=== PATIENT | male | born 1945 | race Caucasian/White ===

== ENCOUNTER 2024-02-20 11:44 | Outpatient (CLI) | payer MEDICARE, SELFPAY ==
[2024-02-20 11:51] VITALS: BMI 27.2
--- NOTE | 2024-02-20 11:55 | PC.NURSE ---
1155-collected labs via venipuncture stick in left ac with butterfly needle; to call pt with results.
[2024-02-20 12:05] LABS: Basophils # 0.1 K/mm3 (0-0.2); Basophils % 1.1 % (0.1-2.0); Eosinophils # 0.4 K/mm3 (0.0-0.4); Hematocrit 44.6 % (42.0-52.0); Lymphocytes # 1.7 K/mm3 (0.7-4.5); Lymphocytes % 29.1 % (10-50); Mean Corpuscular HGB Conc 33.7 g/dL (31.8-35.4); Mean Corpuscular Hemoglobin 31.5 pg (27.0-31.2); Mean Corpuscular Volume 93.4 fl (80-94); Mean Platelet Volume 9.8 fl (7.4-10.4); Monocytes # 0.4 K/mm3 (0.1-1.0); Monocytes % 6.7 % (1.7-9.3); Neutrophils # 3.4 K/mm3 (1.8-7.8); Neutrophils % 57.1 % (37.0-80.0); Platelet Count 159 K/mm3 (142-424); Red Blood Count 4.78 M/mm3 (4.60-6.20)
[2024-02-20 12:31] LABS: Chloride 103 mmol/L (98-107); Potassium 3.7 mmoL/L (3.5-5.1); Sodium 138 mmol/L (136-145)
[2024-02-20 12:34] LABS: Alanine Aminotransferase 19 U/L (12-78); Albumin Level 4.3 g/dl (3.5-5.0); Albumin/Globulin Ratio 1.4 (1.1-1.8); Alkaline Phosphatase 66 U/L (38-126); Anion Gap 10.7 mEq/L (5-15); Aspartate Amino Transferase 28 U/L (17-59); Bilirubin,Total 2.1 mg/dl (0.2-1.3); Blood Urea Nitrogen 15 mg/dl (9-20); Calcium 8.8 mg/dl (8.4-10.2); Carbon Dioxide 28 mmol/L (22.0-30.0); Creatinine Clearance Estimated 71 mL/min (50-200); Estimated Glomerular Filt Rate 81 ml/min (>60); GFR (African American) 98 ML/MIN (>60); Glucose 108 mg/dl (74-100); Total Protein,Serum 7.3 g/dl (6.3-8.2)
[2024-02-20 13:07] LABS: Lactate Dehydrogenase 168 U/L (313-618)
== END 2024-02-20 12:00 | disposition home or self-care (01) ==
LOC: INF 11:47
PROVIDERS: Visit Provider Internal Medicine Medical Oncology
DX: C85.18 Unspecified B-cell lymphoma, lymph nodes of multiple sites (principal)
CPT/HCPCS: 36415; 80053; 83615; 85025

== ENCOUNTER 2024-08-20 11:07 | Outpatient (CLI) | payer MEDICARE, SELFPAY ==
[2024-08-20 11:46] LABS: Hematocrit 36.1 % (42.0-52.0); Hemoglobin 12.4 g/dL (14.1-18.0); Mean Corpuscular HGB Conc 34.3 g/dL (31.8-35.4); Mean Corpuscular Hemoglobin 29.3 pg (27.0-31.2); Mean Corpuscular Volume 85.3 fl (80-94); Mean Platelet Volume 10.9 fl (7.4-10.4); Platelet Count 142 K/mm3 (142-424); Red Blood Count 4.23 M/mm3 (4.60-6.20); Red Cell Distribution Width 12.9 % (11.5-17.5); White Blood Count 6.3 K/mm3 (4.8-10.8)
[2024-08-20 11:47] LABS: Basophils # 0.1 K/mm3 (0-0.2); Basophils % 0.8 % (0.1-2.0); Eosinophils # 0.3 K/mm3 (0.0-0.4); Eosinophils % 5.2 % (0.1-12.0); Lymphocytes # 1.7 K/mm3 (0.7-4.5); Lymphocytes % 27.3 % (10-50); Monocytes # 0.6 K/mm3 (0.1-1.0); Monocytes % 9.5 % (1.7-9.3); Neutrophils # 3.5 K/mm3 (1.8-7.8); Neutrophils % 56.4 % (37.0-80.0)
[2024-08-20 12:46] LABS: Albumin Level 4.1 g/dl (3.5-5.0); Chloride 109 mmol/L (98-107); Sodium 137 mmol/L (136-145)
[2024-08-20 12:49] LABS: Alanine Aminotransferase 23 U/L (12-78); Albumin/Globulin Ratio 1.9 (1.1-1.8); Alkaline Phosphatase 67 U/L (38-126); Aspartate Amino Transferase 27 U/L (17-59); Bilirubin,Total 1.5 mg/dl (0.2-1.3); Blood Urea Nitrogen 19 mg/dl (9-20); Carbon Dioxide 24 mmol/L (22.0-30.0); Estimated Glomerular Filt Rate 93 ml/min (>60); GFR (African American) 112 ML/MIN (>60); Globulin 2.2 g/dL (1.3-3.2); Total Protein,Serum 6.3 g/dl (6.3-8.2)
[2024-08-20 12:50] LABS: Calcium 8.6 mg/dl (8.4-10.2); Glucose 121 mg/dl (74-100)
[2024-08-20 13:00] LABS: Lactate Dehydrogenase 170 U/L (313-618)
== END 2024-08-20 23:59 | disposition home or self-care (01) ==
LOC: LAB 11:10
PROVIDERS: Visit Provider Internal Medicine Medical Oncology
DX: C85.10 Unspecified B-cell lymphoma, unspecified site (principal)
CPT/HCPCS: 36415; 80053; 83615; 85025

== ENCOUNTER 2025-03-17 10:17 | Outpatient (CLI) | payer MEDICARE, SELFPAY ==
--- OUTSIDE RECORDS SUMMARY | 2025-03-17 10:41 | XMS_ITS | Clinical Summary ---
Author Organization [employer] ([place], [place], [place], [place]) Address [address] [place] [address] Care Team Providers Care Marking Stitcher Name Role Phone Meghana Mathews APRN Primary Care Provider Allergies Active Allergy Reactions Criticality Noted Date Comments Diphenhydramine 08/09/2022 Meloxicam 08/09/2022 Medications omeprazole (PriLOSEC) 40 MG capsule Take 1 capsule (40 mg total) by mouth daily. Active pravastatin (PRAVACHOL) 10 MG tablet Take 1 tablet (10 mg total) by mouth. Active sertraline (ZOLOFT) 100 MG tablet sertraline 100 mg tablet TAKE 1 TABLET BY MOUTH EVERY DAY Active Social History Tobacco Use Types Packs/Day Years Used Date Smoking Tobacco: Former Cigarettes 3 28 1 5 - 1982 Tobacco Cessation:Counseling Given: Not Answered Alcohol Use Standard Drinks/Week Comments Yes 0 (1 standard drink = 0.6 oz pure alcohol) occasional 1-2 beer once a week Family and Community Support Answer Fernando e Recorded Help with Day to Day Activities Not on file 09/20/2023 Feeling Lonely or Isolated Not on file 09/20 Educational Attainment Answer Date Iván rded Speak language other than Macanese at home Not on file 09/20/2023 Want help with school or training Not on file 09/20/2023 Substance Use Answer Date Recorded Used prescription meds for non-medical reasons N ot on file 09/20/2023 Used illegal drugs past 12 months Not on file 09/20/2023 Sex and Gender Information Value Date Recorded Sex Assigned at Not on file Legal Sex Male 5:17 PM CDT Gender Identity Not on file Sexual Orientation Not on file Last Filed Vital Signs Vital Sign Reading Time Taken Comments Blood Pressure 155/78 10/23/2023 11:24 AM EST Pulse 77 10/23/2023 11:24 AM EST Temperature 36.5 C (97.7 F) 05/17/2023 9:17 AM EDT Respiratory Rate 16 05/17/2023 9:17 AM EDT Oxygen Saturation 96% 10/23/2023 11:24 AM EST Inhaled Oxygen Concentration - - Weight 87.7 kg (193 lb 6.4 oz) 10/23/2023 11:24 AM EST Height 177.8 cm (5' 10 ) 10/23/2023 11:24 AM EST Body Mass Index 27.75 10/23/2023 11:24 AM EST Plan of Treatment Health Maintenance Due Date Last Done Comments Depression Screening (12+) 1955 DTAP/TDAP/TD VACCINES (1 - Tdap) 1962 Shingles Vaccine (Zoster) (1 of 2) 1962 Respiratory Syncytial Virus (RSV) Adult or (1 - 1-dose 75+ series) 2018 Medicare Initial AWV [id number] 04/04/2023 COVID-19 VACCINE ( - 2023-2 5 season) 2024 04/25/2022, 06/06/2021, 10/16/2020, Additional history exists Falls Risk Screening 09/03/2024 Tobacco Cessation Counseling and Screening (12+) 10/23/2024 10/23/2023 Influenza Vaccine (#1) 2025 3, 05/19/2022, 06/28/2020, Additional history exists Pneumococcal 50+ years Completed 05/19/2022, 2016 Insurance [facility] MEDIC[facility] ADVANTAGE Care Teams Marking Stitcher Relationship Specialty Start Date End Date Meghana Mathews, DIRECTOR COMPLIANCE [address] [facility] [address] [place], [place] [phone] PCP - General Nurse Practitioner 05/17/23
--- OUTSIDE RECORDS SUMMARY | 2025-03-17 10:41 | XMS_ITS | Referral Summary ---
Author Organization [email or web address] ([place], [place], [place], [place]) Address [address] [place] [address] Care Team Providers Care Manager Highway Name Role Phone Meghana Mathews APRN Primary [...] Date Iván rded Speak language other than Welsh at home Not on file 09/20/2023 Want [...] 10/23/2023 11:24 AM EST Plan of Treatment Not on file Insurance Care Teams Manager Highway Relationship Specialty Start Date End Date Meghana Mathews, HEAD START ASSISTANT TEACHER [address] [phone] PCP - General Nurse Practitioner 05/17/23
--- OUTSIDE RECORDS SUMMARY | 2025-03-17 10:42 | XMS_ITS | Encounter Summary ---
Author Organization [employer] ([place], [place], [place], [place]) Address [address] [place] [address] Care Team Providers Care Shield Cleaner Name Role Phone Meghana Mathews APRN Primary Care Provider Encounter Details Date Type Department Care Team (Late st Contact Info) Description 10/24/2023 Surgery Prep [facility] General Surgery [address] [place] [phone] Sulma Gusman MA Social History Tobacco Use Types Packs/Day Years Used Date Smoking Tobacco: Former Cigarettes 3 28 1 355 1982 Alcohol Use Standard Drinks/Week Comments Yes 0 (1 standard drink = 0.6 oz pure alcohol) occasional 1-2 beer once a week Family and Community Support Answer Fernando e Recorded Help with Day to Day Activities Not on file 09/20/2023 Feeling Lonely or Isolated Not on file 09/20 Educational Attainment Answer Date Iván rded Speak language other than Marshallese at home Not on file 09/20/2023 Want [...] on file Sexual Orientation Not on file documented as of this encounter Plan of Treatment Not on file documented as of this encounter Visit Diagnoses Not on filedocumented in this encounter Care Teams Shield Cleaner Relationship Specialty Start Date End Date Meghana Mathews, MELE [address] [place] [address] [place] [phone] PCP - General Nurse Practitioner 05/17/23 documented as of this encounter
[2025-03-17 11:17] LABS: Hematocrit 38.4 % (42.0-52.0); Hemoglobin 13.0 g/dL (14.1-18.0); Immature Granulocytes % 1.2 %; Mean Corpuscular HGB Conc 33.9 g/dL (31.8-35.4); Mean Corpuscular Hemoglobin 29.0 pg (27.0-31.2); Mean Corpuscular Volume 85.5 fl (80-94); Nucleated Red Blood Cells % 0 %; Platelet Count 149 K/mm3 (142-424); Red Blood Count 4.49 M/mm3 (4.60-6.20); Red Cell Distribution Width-SD 42.4 fL; White Blood Count 4.9 K/mm3 (4.8-10.8)
[2025-03-17 11:37] LABS: Alanine Aminotransferase 13 U/L (12-78); Albumin Level 4.4 g/dl (3.5-5.0); Albumin/Globulin Ratio 1.6 (1.1-1.8); Alkaline Phosphatase 74 U/L (38-126); Anion Gap 15.1 mEq/L (5-15); Aspartate Amino Transferase 22 U/L (17-59); Bilirubin,Total 1.4 mg/dl (0.2-1.3); Blood Urea Nitrogen 14 mg/dl (9-20); Calcium 9.0 mg/dl (8.4-10.2); Carbon Dioxide 27 mmol/L (22.0-30.0); Chloride 100 mmol/L (98-107); Creatinine,Serum 0.70 mg/dl (0.66-1.25); Estimated Glomerular Filt Rate 108 ml/min (>60); GFR (African American) 131 ML/MIN (>60); Globulin 2.7 g/dL (1.3-3.2); Glucose 112 mg/dl (74-100); Potassium 4.1 mmoL/L (3.5-5.1); Sodium 138 mmol/L (136-145); Total Protein,Serum 7.1 g/dl (6.3-8.2)
== END 2025-03-17 23:59 | disposition home or self-care (01) ==
LOC: LAB 10:18
PROVIDERS: Visit Provider Internal Medicine Medical Oncology
DX: C85.10 Unspecified B-cell lymphoma, unspecified site (principal)
CPT/HCPCS: 36415; 80053; 83615; 85025